=== PATIENT | male | born 1940 | race Caucasian/White ===

== ENCOUNTER 2019-12-02 09:10 | Day surgery (SDC) | payer MEDICARE ==
[2019-12-01 09:31] VITALS: BMI 23.6
[~2019-12-02 09:10] MED LIST: LACTATED RINGERS 1,000 ML IV SCH
[2019-12-02 09:34] VITALS: RESP 16; TEMP 98.6
[2019-12-02] MEDS ORDERED: PROPOFOL 10 MG/ML 20 ML VIAL IV ONE (10:10)
[2019-12-02] MEDS ORDERED: LIDOCAINE 1% INJ 10MG/ML (20 ML MDV) ONE (10:10)
--- NOTE | 2019-12-02 10:12 | P.GSHP ---
History of Present Illness H&P Date: 12/02/19 Chief Complaint: GERD Is a 71-year-old male who's had issues with GERD and dysphagia.. Patient rents today for EGD. Past Medical History Past Medical History: Hyperlipidemia, Seizure Disorder Additional Past Medical History / Comment(s): LAST SEIZURE 2017. SEASONAL ALLERGIES History of Any Multi-Drug Resistant Organisms: None Reported Past Surgical History: Coronary Bypass/CABG, Heart Catheterization, Tonsillectomy Additional Past Surgical History / Comment(s): BILAT CATARACTS REMOVED WITH LENS IMPLANTED. COLONOSCOPY Past Anesthesia/Blood Transfusion Reactions: No Reported Reaction Smoking Status: Former smoker - Past Family History Mother Family Medical History: No Reported History Medications and Allergies Home Medications Medication Instructions Recorded Confirmed Type Aspirin EC [Ecotrin Low Dose] 81 mg PO DAILY 12/01/19 12/02/19 History Clopidogrel [Plavix] 75 mg PO DAILY 12/01/19 12/02/19 History Montelukast [Singulair] 10 mg PO DAILY 12/01/19 12/02/19 History Simvastatin [Zocor] 20 mg PO HS 12/01/19 12/02/19 History levETIRAcetam [Keppra] 500 mg PO Q12HR 12/01/19 12/02/19 History Allergies Allergy/AdvReac Type Severity Reaction Status Date / Time latex Allergy Rash/Hives Verified 12/02/19 09:28 Surgical - Exam Vital Signs Temp Pulse Resp BP Pulse Ox 98.6 F 58 L 16 157/70 98 12/02/19 09:32 12/02/19 09:32 12/02/19 09:32 12/02/19 09:32 12/02/19 09:32 - General well developed, well nourished, no distress - Eyes PERRL - ENT normal pinna - Neck no masses - Respiratory normal expansion - Cardiovascular Rhythm: regular - Abdomen Abdomen: soft, non tender Assessment and Plan Assessment: GERD. We'll perform EGD
--- NOTE | 2019-12-02 10:23 | P.OP ---
Date of Procedure: 12/02/19 Preoperative Diagnosis: GERD Postoperative Diagnosis: Antral gastritis Hiatal hernia Esophagitis Procedure(s) Performed: EGD Anesthesia: MAC Surgeon: Jorge Germain Pathology: other (Antrum, esophagus) Condition: stable Disposition: PACU Description of Procedure: The patient's placed on the endoscopy table in the lateral position. She received IV sedation. The gastric pouch oropharynx past esophagus and stomach. Scope was then through the pylorus. The first and second portion duodenum appeared normal. Scope was then brought back the antrum this is clean. A biopsies performed. The scope was unretroflexed and remainder of the stomach appeared normal. There was a hiatal hernia seen. The GE junction was at 38 cm. The distal esophagus appeared inflamed a biopsies performed. The proximal esophagus appeared normal. Scope was withdrawn for patient.
[2019-12-02 10:37] VITALS: BP 118/73; PULSE 58
== END 2019-12-02 11:15 | disposition home or self-care (01) ==
LOC: ORWHC2ENDO 09:10
PROVIDERS: ATTEND Surgery
DX: K21.0 Gastro-esophageal reflux disease with esophagitis (principal); K29.50 Unspecified chronic gastritis without bleeding; K44.9 Diaphragmatic hernia without obstruction or gangrene; E78.5 Hyperlipidemia, unspecified; G40.909 Epilepsy, unspecified, not intractable, without status epilepticus; J30.2 Other seasonal allergic rhinitis; Z95.1 Presence of aortocoronary bypass graft; Z98.890 Other specified postprocedural states; Z90.89 Acquired absence of other organs; Z98.41 Cataract extraction status, right eye; Z98.42 Cataract extraction status, left eye; Z96.1 Presence of intraocular lens; Z87.891 Personal history of nicotine dependence; Z79.82 Long term (current) use of aspirin; Z79.02 Long term (current) use of antithrombotics/antiplatelets; Z79.899 Other long term (current) drug therapy; Z91.040 Latex allergy status; Z97.2 Presence of dental prosthetic device (complete) (partial); Z90.49 Acquired absence of other specified parts of digestive tract
CPT/HCPCS: 88305; 43239; J2001; J2704

== ENCOUNTER → 2019-12-17 | Outpatient (CLI) | payer MEDICARE ==
--- NOTE | 2019-12-17 09:33 | FL ---
EXAMINATION TYPE: FL UGI air w esophagus DATE OF EXAM: 12/17/2019 COMPARISON: NONE HISTORY: Dysphasia TECHNIQUE: A double contrast UGI study is performed. 1 minute and 10 seconds of fluoroscopy time and 38 images submitted. FINDINGS: Medical Review Coordinator image of the abdomen shows no gross abnormality. The esophagus shows normal motility and emptying into the stomach. There is a small hiatal hernia and there is extensive gastroesophageal reflux. There is a esophageal wall fold thickening distally jazmin elate for esophagitis or Cleary's esophagus. Posterior impression upon the upper esophageal airway a t the level of C5-6 likely related to prominent cricopharyngeal muscle could be correlated with direc t visualization for confirmation. Small hiatal hernia noted. The stomach shows normal distensibility, peristalsis, and mucosal folds. No evidence of any mass or ulcer disease. The duodenal bulb, sweep, and proximal small bowel loops are unremarkable. IMPRESSION: 1. Extensive gastroesophageal reflux with suspected fold thickening and mild tapered narrowing of the distal esophagus. Correlate for esophagitis or Cleary's esophagus. Direct visualization recommended . 2. Posterior impression at the level C5 of the esophagus most likely related to prominent cricopharyn geal muscle.
== END | disposition home or self-care (01) ==
LOC: RADUSWWP 08:49
PROVIDERS: ATTEND Surgery
DX: K21.9 Gastro-esophageal reflux disease without esophagitis (principal)
CPT/HCPCS: 74246

== ENCOUNTER 2020-01-05 07:54 | Day surgery (SDC) | payer MEDICARE ==
[~2020-01-05 07:54] MED LIST changes: +ACETAMINOPHEN TAB 500 MG TAB PO ONE; +DEXAMETHASONE SOD PHOSPHATE 10 MG/ML 1 ML VIAL IV ONE; +HEPARIN SODIUM,PORCINE 5,000 UNIT/ML 1 ML VIAL SQ ONE; +HYDROmorphone 0.5 MG/0.5 ML SYRINGE IVP PRN; -LACTATED RINGERS 1,000 ML IV SCH; +LIDOCAINE 1% (10MG/ML) FOR IV START INTRADERMA PRN; +ONDANSETRON 4 MG/2 ML VIAL IVP ONE
[2020-01-05] MEDS ORDERED: ONDANSETRON 4 MG/2 ML VIAL ONE (08:15)
[2020-01-05] MEDS ORDERED: ACETAMINOPHEN TAB 500 MG TAB ONE (08:15)
[2020-01-05] MEDS ORDERED: HEPARIN SODIUM,PORCINE 5,000 UNIT/ML 1 ML VIAL ONE (08:15)
[2020-01-05] MEDS ORDERED: LACTATED RINGERS 1,000 ML IV ONE ×2 (08:39→10:40)
[2020-01-05 09:04] LABS: Potassium 4.2 mmol/L (3.5-5.1)
[2020-01-05] MEDS ORDERED: LIDOCAINE 1%-EPI 1:100,000 20 ML VIAL SQ ONE (09:16)
--- NOTE | 2020-01-05 09:30 | P.GSHP ---
History of Present Illness H&P Date: 01/05/20 Chief Complaint: GERD This a 79-year-old male referred from Dr. Tamara lamb.The patient has had long- standing problems with reflux esophagitis. The patient underwent recent EGD is found have evidence of esophagitis. Patient has been well informed on the procedure of laparoscopic Toney fundoplication. The patient is aware the risk of the conversion to the open procedure, risk of injury to the stomach, liver and spleen. The patient is also a risk of recurrent GERD and dysphagia symptoms. The patient understands there is a postoperative diet of full liquids for 2 weeks after surgery. Past Medical History Past Medical History: GERD/Reflux, Hyperlipidemia, Seizure Disorder Additional Past Medical History / Comment(s): LAST SEIZURE 2016. SEASONAL ALLERGIES History of Any Multi-Drug Resistant Organisms: None Reported Past Surgical History: Coronary Bypass/CABG, Heart Catheterization, Tonsillectomy Additional Past Surgical History / Comment(s): BILAT CATARACTS REMOVED WITH LENS IMPLANTED. COLONOSCOPY Past Anesthesia/Blood Transfusion Reactions: No Reported Reaction Past Psychological History: No Psychological Hx Reported Smoking Status: Former smoker Past Alcohol Use History: None Reported Additional Past Alcohol Use History / Comment(s): QUIT SMOKING 1979 Past Drug Use History: None Reported - Past Family History Mother Family Medical History: No Reported History Medications and Allergies Home Medications Medication Instructions Recorded Confirmed Type Aspirin EC [Ecotrin Low Dose] 81 mg PO DAILY 12/01/19 12/28/19 History Clopidogrel [Plavix] 75 mg PO DAILY 12/01/19 12/28/19 History Montelukast [Singulair] 10 mg PO QAM 12/01/19 12/28/19 History Simvastatin [Zocor] 20 mg PO HS 12/01/19 12/28/19 History levETIRAcetam [Keppra] 500 mg PO Q12HR 12/01/19 12/28/19 History Multivitamins, Thera [Multivitamin 1 tab PO DAILY 01/04/20 01/04/20 History (formulary)] Vitamin E 1 cap PO DAILY 01/04/20 01/04/20 History Allergies Allergy/AdvReac Type Severity Reaction Status Date / Time adhesive Allergy Rash/Hives Verified 01/04/20 08:19 latex Allergy Rash/Hives Verified 12/28/19 14:36 Surgical - Exam Vital Signs Temp Pulse Resp BP Pulse Ox 97.8 F 65 18 167/90 97 01/05/20 08:28 01/05/20 08:28 01/05/20 08:28 01/05/20 08:28 01/05/20 08:28 - General well developed, well nourished, no distress - Eyes PERRL - ENT normal pinna - Neck no masses - Respiratory normal expansion - Cardiovascular Rhythm: regular - Abdomen Abdomen: soft, non tender Results - Labs 01/05/20 08:41 Abnormal Lab Results - Last 24 Hours (Table) 01/05/20 Range/Units 08:41 Chloride 108 H (98-107) mmol/L Diabetes panel 01/05/20 Range/Units 08:41 Sodium 140 (137-145) mmol/L Potassium 4.2 (3.5-5.1) mmol/L Chloride 108 H (98-107) mmol/L Carbon Dioxide 27 (22-30) mmol/L Pituitary panel 01/05/20 Range/Units 08:41 Sodium 140 (137-145) mmol/L Potassium 4.2 (3.5-5.1) mmol/L Chloride 108 H (98-107) mmol/L Carbon Dioxide 27 (22-30) mmol/L Adrenal panel 01/05/20 Range/Units 08:41 Sodium 140 (137-145) mmol/L Potassium 4.2 (3.5-5.1) mmol/L Chloride 108 H (98-107) mmol/L Carbon Dioxide 27 (22-30) mmol/L Assessment and Plan Assessment: GERD. We'll perform laparoscopic Toney fundal plication.
[2020-01-05] MEDS ORDERED: SUCCINYLCHOLINE CHLORIDE 100 MG/5 ML SYR IV ONE (09:48)
[2020-01-05] MEDS ORDERED: PROPOFOL 10 MG/ML 20 ML VIAL IV ONE (09:48)
[2020-01-05] MEDS ORDERED: NEOSTIGMINE 1 MG/ML 10 ML VIAL ONE (09:48)
[2020-01-05] MEDS ORDERED: GLYCOPYRROLATE 0.2 MG/ML 2 ML VIAL ONE (09:48)
[2020-01-05] MEDS ORDERED: ROCURONIUM 10 MG/ML (5 ML VIAL) IV ONE (09:48)
[2020-01-05] MEDS ORDERED: fentaNYL (PF) 50 MCG/ML 2 ML AMP ONE (09:48)
[2020-01-05] MEDS ORDERED: LIDOCAINE 1% INJ 10MG/ML (20 ML MDV) ONE (09:48)
[2020-01-05] MEDS ORDERED: HYDROmorphone (PF) 1 MG/ML ONE (09:48)
[2020-01-05] MEDS ORDERED: HYDROmorphone 1 MG/ML 1 ML SYRINGE IVP PRN (10:38)
--- NOTE | 2020-01-05 10:38 | P.OP ---
Date of Procedure: 01/05/20 Preoperative Diagnosis: GERD Postoperative Diagnosis: GERD Procedure(s) Performed: Laparoscopic Toney fundal plication Anesthesia: SHANEL Surgeon: Jorge Germain Estimated Blood Loss (ml): 5 Pathology: none sent Condition: stable Disposition: PACU Description of Procedure: HarThe patient was placed on the operating table in the supine position. The patient received general anesthesia. And was placed in dorsal lithotomy position. The patient was prepped and draped in the usual sterile fashion. The skin incision sites were anesthetized with 1% local Xylocaine. The skin was incised in the left periumbilical area and then using a blade less 5 mm trocar u nder direct visualization panel cavity was entered. After adequate insufflation the laparoscope was then placed into the peritoneal cavity. Next a 5 mm trochars placed in the right epigastric position. Another 5 millimeter trocar the right lateral position. Another 5 millimeter trocar in the left lateral position a 5 mm trocar is placed in the left epigastric position. And then the initial 5 mm trocar was exchanged for a 10 mm trocar. The left lateral lobe liver was retracted. The hernia was seen. The crural defect was then dissected using the Harmonic scissors device. A 360 crural dissection was performed the esophagus stomach was reduced back into the peritoneal Cavity. The crural defect was then closed using 2-0 Ethibond suture. Next the fundus of the stomach was mobilized using the [place] scissors device. and then a 58-[place] bougie dilator was placed oropharynx passed into the esophagus and stomach the fundal plication wrap was then performed by grasping the fundus posteriorly and bringing it around the esophagus and stomach fundoplication was then performed using 2-0 Ethibond suture. Care was taken that the fundal location rested over top of the intra-abdominal esophagus. There was no injury seen to the stomach or esophagus. The dilator was then withdrawn. The abdomen was irrigated there is no bleeding seen. The trochars were then withdrawn and then skin incision sites were closed using 3-0 Monocryl suture Steri-Strips are applied. Patient thought procedure well and sent to recovery room in stable condition.
[2020-01-05] MEDS: LACTATED RINGERS 1,000 ML IV SCH (12:11)
[2020-01-05] MEDS: D5-0.45% NACL WITH KCL 20MEQ/L 1,000 ML IV SCH (14:10)
[2020-01-05 14:28] VITALS: BMI 23.1
--- NOTE | 2020-01-05 17:38 | FL ---
EXAMINATION TYPE: FL esophagus cervic/pharynx DATE OF EXAM: 01/05/2020 LIMITED ESOPHAGRAM: CLINICAL HISTORY: Post Cory fundoplication TECHNIQUE: Limited esophagram is performed utilizing 20 oz of Omnipaque 350. A total of 41 seconds o f fluoroscopic time was utilized during procedure. Images: 10 FINDINGS: The patient swallowed contrast without difficulty or delay. Normal postsurgical pneumoperi toneum is present. There is good flow of contrast through the diaphragmatic hiatus into the stomach, there is no evidence of contrast extravasation to suggest leak. No persistent hiatal hernia is seen. Patient tolerated the procedure well. IMPRESSION: 1. No hesitation and no extravasation of contrast passing through the gastroesophageal region.
[2020-01-05] MEDS ORDERED: ATORVASTATIN 10 MG TAB PO SCH (21:00)
[2020-01-05] MEDS: levETIRAcetam 500 MG TAB PO SCH (21:16)
[2020-01-06] MEDS: D5-0.45% NACL WITH KCL 20MEQ/L 1,000 ML IV SCH ×3 (00:18→05:32)
[2020-01-06] MEDS: LACTATED RINGERS 1,000 ML IV SCH (05:00)
[2020-01-06 08:12] VITALS: BP 149/64; PULSE 71; RESP 18; TEMP 98.3
[2020-01-06] MEDS: levETIRAcetam 500 MG TAB PO SCH (08:16)
[2020-01-06] MEDS ORDERED: ENOXAPARIN 40 MG/0.4 ML SYRINGE SQ SCH (09:00)
[2020-01-06] MEDS ORDERED: ASPIRIN 81 MG PO SCH (09:00)
[2020-01-06] MEDS ORDERED: MONTELUKAST 10 MG TAB PO SCH (09:00)
[2020-01-06] MEDS ORDERED: CLOPIDOGREL 75 MG TAB PO SCH (09:00)
--- NOTE | 2020-01-06 13:13 | P.DS ---
Providers Expected date of discharge: 01/06/20 Attending physician: Jorge Germain Consults: 01/05/20 10:38 Consult Physician Routine Consulting Provider: Kd James Consult Reason/Comments: Medical management Do you want consulting provider notified?: Yes Primary care physician: Tamara James Hospital Course: Discharge diagnosis 1. GERD status post laparoscopic Toney fundoplication Hospital course This 79 year old male with known history of GERD. He is status post laparoscopic Toney fundoplication. He tolerated procedure without complications. Esophagram completed showing no hesitation no extravasation of contrast passing through the gastroesophageal region. Patient is tolerating diet. He is afebrile. He has been up and ambulating. He is stable for discharge home. Please refer to chart for any further details. Physician Lpn Rn note has been reviewed by physician. Signing provider agrees with the documented findings, assessment, and plan of care. Patient Condition at Discharge: Stable Plan - Discharge Summary Discharge Rx Participant: No New Discharge Prescriptions: New Docusate [Colace] 100 mg PO BID #30 capsule Hydrocodone/Acetaminophen [Blain 5-325] 1 tab PO Q6HR PRN 3 Days #12 tab PRN Reason: Pain Continue Aspirin EC [Ecotrin Low Dose] 81 mg PO DAILY Clopidogrel [Plavix] 75 mg PO DAILY levETIRAcetam [Keppra] 500 mg PO Q12HR Montelukast [Singulair] 10 mg PO QAM Simvastatin [Zocor] 20 mg PO HS Vitamin E 1 cap PO DAILY Multivitamins, Thera [Multivitamin (formulary)] 1 tab PO DAILY Discharge Medication List Aspirin EC [Ecotrin Low Dose] 81 mg PO DAILY 12/01/19 [History] Clopidogrel [Plavix] 75 mg PO DAILY 12/01/19 [History] Montelukast [Singulair] 10 mg PO QAM 12/01/19 [History] Simvastatin [Zocor] 20 mg PO HS 12/01/19 [History] levETIRAcetam [Keppra] 500 mg PO Q12HR 12/01/19 [History] Multivitamins, Thera [Multivitamin (formulary)] 1 tab PO DAILY 01/04/20 [History] Vitamin E 1 cap PO DAILY 01/04/20 [History] Docusate [Colace] 100 mg PO BID #30 capsule 01/06/20 [Rx] Hydrocodone/Acetaminophen [Blain 5-325] 1 tab PO Q6HR PRN 3 Days #12 tab 01/06/20 [Rx] Follow up Appointment(s)/Referral(s): Jorge Germain MD [STAFF PHYSICIAN] - 1 Week Activity/Diet/Wound Care/Special Instructions: No driving while taking Blain No lifting over 10 pounds You may shower. No soaking or tub baths for 2 weeks Very light activity until you are reevaluated at your follow up appointment with your surgeon Discharge Disposition: HOME SELF-CARE
== END 2020-01-06 14:48 | disposition home or self-care (01) ==
LOC: OR 07:54 → 4SSUR 11:15 → OR 01-06 14:48
PROVIDERS: ATTEND Surgery
DX: K21.0 Gastro-esophageal reflux disease with esophagitis (principal); K44.9 Diaphragmatic hernia without obstruction or gangrene; E78.5 Hyperlipidemia, unspecified; G40.909 Epilepsy, unspecified, not intractable, without status epilepticus; Z79.02 Long term (current) use of antithrombotics/antiplatelets; Z79.82 Long term (current) use of aspirin; Z87.891 Personal history of nicotine dependence; Z91.040 Latex allergy status; Z88.8 Allergy status to other drugs, medicaments and biological substances; I25.10 Atherosclerotic heart disease of native coronary artery without angina pectoris; J44.9 Chronic obstructive pulmonary disease, unspecified; Z95.1 Presence of aortocoronary bypass graft
CPT/HCPCS: 80051; 74210; 43280; J1644; J1100; J0690; J2405; J1170; Q9967

== ENCOUNTER → 2020-08-02 | Outpatient (CLI) | payer MEDICARE ==
--- NOTE | 2020-08-02 15:46 | FL ---
EXAMINATION TYPE: FL UGI air w esophagus DATE OF EXAM: 08/02/2020 COMPARISON: 01/05/2020 HISTORY: Dysphagia TECHNIQUE: A single contrast UGI study is performed. FINDINGS: Esophagram and upper GI is performed utilizing single contrast technique. Esophagus is slightly dilated. There is stenosis at the post knee centimeter fundal plication level. No extravasation of contrast is evident. Secondary and tertiary contractions are evident within the d istal esophagus. With this stenosis present single contrast technique was utilized for the upper GI portion of the rajwinder dy. The stomach is visualized appears normal. Ligament of Treitz is in a normal position. Fundus body and antrum of the stomach as visualized appears normal. Duodenal cap and sweep appear normal. Incidental note is made of epicardial leads. IMPRESSIONS: 1. Severe stenosis to the descending fundoplication normal. 2. 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 There is incomplet e emptying of the contrast during the examination within the distal esophagus. 3. Normal-appearing single contrast William and duodenum
== END | disposition home or self-care (01) ==
LOC: RADUSWWP 09:44
PROVIDERS: ATTEND Surgery
DX: K22.2 Esophageal obstruction (principal); K22.8 Other specified diseases of esophagus
CPT/HCPCS: 74246

== ENCOUNTER 2020-08-07 11:15 | Day surgery (SDC) | payer MEDICARE ==
[2020-08-02 11:21] VITALS: BMI 20.7
--- NOTE | 2020-08-07 09:53 | P.GSHP ---
History of Present Illness H&P Date: 08/07/20 Chief Complaint: Back melanoma Is a 29-year-old male who presents today for excision of back back melanoma. The melanoma was previously biopsied Past Medical History Past Medical History: GERD/Reflux, Hyperlipidemia, Seizure Disorder Additional Past Medical History / Comment(s): LAST SEIZURE 2016. SEASONAL ALLERGIES History of Any Multi-Drug Resistant Organisms: None Reported Past Surgical History: Coronary Bypass/CABG, Heart Catheterization, Hernia Repair, Tonsillectomy Additional Past Surgical History / Comment(s): BILAT CATARACTS REMOVED WITH LENS IMPLANTED. COLONOSCOPY. HIATAL HERNIA SX Past Anesthesia/Blood Transfusion Reactions: No Reported Reaction Smoking Status: Former smoker - Past Family History Mother Family Medical History: No Reported History Medications and Allergies Home Medications Medication Instructions Recorded Confirmed Type Aspirin EC [Ecotrin Low Dose] 81 mg PO DAILY 12/01/19 08/02/20 History Clopidogrel [Plavix] 75 mg PO DAILY 12/01/19 08/02/20 History Montelukast [Singulair] 10 mg PO QAM 12/01/19 08/02/20 History Simvastatin [Zocor] 20 mg PO HS 12/01/19 08/02/20 History levETIRAcetam [Keppra] 500 mg PO Q12HR 12/01/19 08/02/20 History Multivitamins, Thera [Multivitamin 1 tab PO DAILY 01/04/20 08/02/20 History (formulary)] Vitamin E 1 cap PO DAILY 01/04/20 08/02/20 History Allergies Allergy/AdvReac Type Severity Reaction Status Date / Time adhesive Allergy Rash/Hives Verified 08/02/20 11:13 latex Allergy Rash/Hives Verified 08/02/20 11:13 Surgical - Exam - General well developed, well nourished, no distress - Eyes PERRL - ENT normal pinna - Neck no masses - Respiratory normal expansion - Cardiovascular Rhythm: regular - Abdomen Abdomen: soft, non tender - Integumentary 2 cm shave biopsy melanoma in the midportion back over spine Assessment and Plan Assessment: Back melanoma. We'll perform wide local excision
[2020-08-07 11:54] VITALS: RESP 16; TEMP 97.5
[2020-08-07] MEDS ORDERED: LACTATED RINGERS 1,000 ML IV ONE ×2 (11:58)
[2020-08-07] MEDS ORDERED: LIDOCAINE 1% (10MG/ML) FOR IV START INTRADERMA ONE (11:59)
[2020-08-07] MEDS ORDERED: LIDOCAINE 1% INJ 10MG/ML (20 ML MDV) ONE (12:56)
[2020-08-07] MEDS ORDERED: PROPOFOL 10 MG/ML 20 ML VIAL IV ONE (12:56)
[2020-08-07 14:00] VITALS: BP 142/71; PULSE 56
--- NOTE | 2020-08-07 15:51 | P.GSHP ---
History of Present Illness H&P Date: 08/07/20 Chief Complaint: dysphagia this is a 71-year-old male with a history of dysphagia. Patient presents today for EGD and possible balloon dilatation. 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 Past Medical History Past Medical History: GERD/Reflux, Hyperlipidemia, Seizure Disorder Additional Past Medical History / Comment(s): LAST SEIZURE 2016. SEASONAL ALLERGIES History of Any Multi-Drug Resistant Organisms: None Reported Past Surgical History: Coronary Bypass/CABG, Heart Catheterization, Hernia Repair, Tonsillectomy Additional Past Surgical History / Comment(s): BILAT CATARACTS REMOVED WITH LENS IMPLANTED. COLONOSCOPY. HIATAL HERNIA SX Past Anesthesia/Blood Transfusion Reactions: No Reported Reaction Smoking Status: Former smoker - Past Family History Mother Family Medical History: No Reported History Medications and Allergies Home Medications Medication Instructions Recorded Confirmed Type Aspirin EC [Ecotrin Low Dose] 81 mg PO DAILY 12/01/19 08/07/20 History Clopidogrel [Plavix] 75 mg PO DAILY 12/01/19 08/07/20 History Montelukast [Singulair] 10 mg PO QAM 12/01/19 08/07/20 History Simvastatin [Zocor] 20 mg PO HS 12/01/19 08/07/20 History levETIRAcetam [Keppra] 500 mg PO Q12HR 12/01/19 08/07/20 History Multivitamins, Thera [Multivitamin 1 tab PO DAILY 01/04/20 08/07/20 History (formulary)] Vitamin E 1 cap PO DAILY 01/04/20 08/07/20 History Allergies Allergy/AdvReac Type Severity Reaction Status Date / Time adhesive Allergy Rash/Hives Verified 08/02/20 11:13 latex Allergy Rash/Hives Verified 08/02/20 11:13 Surgical - Exam Vital Signs Temp Pulse Resp BP Pulse Ox 97.5 F L 52 L 16 169/75 99 08/07/20 11:50 08/07/20 11:50 08/07/20 11:50 08/07/20 11:50 08/07/20 11:50 - General well developed, well nourished, no distress - Eyes PERRL - ENT normal pinna - Neck no masses - Respiratory normal expansion - Cardiovascular Rhythm: regular - Abdomen Abdomen: soft, non tender Assessment and Plan Plan: history of dysphagia. We'll perform EGD and balloon dilatation
--- NOTE | 2020-08-07 15:55 | P.OP ---
Date of Procedure: 08/07/20 Preoperative Diagnosis: dysphagia Postoperative Diagnosis: GE junction stricture Procedure(s) Performed: EGD with balloon dilatation Anesthesia: MAC Surgeon: Jogre Germain Pathology: none sent Condition: stable Disposition: PACU Description of Procedure: the patient's placed on the endoscopy table in the lateral position. He received IV sedation. The gastroscope placed oropharynx passed in the esophagus and stomach. Scope was placed through the pylorus. The scope was unretroflexed patient a previous fundoplication wrap. The scope was then brought back to the GE junction there appeared to be evidence of stricture. At this point a 20 mm balloon was placed across the GE junction. He was insufflated and held in position for 3 minutes. The balloon was withdrawn. There is no evidence of any injury to the mucosa. The scope was then withdrawn for patient. Patient top she will was sent to recovery in stable condition.
== END 2020-08-07 14:07 | disposition home or self-care (01) ==
LOC: ORWHC2ENDO 11:15
PROVIDERS: ATTEND Surgery
DX: K22.2 Esophageal obstruction (principal); K21.9 Gastro-esophageal reflux disease without esophagitis; E78.5 Hyperlipidemia, unspecified; Z95.1 Presence of aortocoronary bypass graft; Z87.891 Personal history of nicotine dependence; Z79.82 Long term (current) use of aspirin; Z79.02 Long term (current) use of antithrombotics/antiplatelets; Z91.040 Latex allergy status; Z91.048 Other nonmedicinal substance allergy status
CPT/HCPCS: 43249; J2001; J2704; C1726